=== PATIENT | female | born 1965 | race African-American/Black ===

== ENCOUNTER 2022-05-10 09:44 | Observation (INO) | payer OTHER ==
[2022-05-10 10:22] LABS: #Basophils 0.1 thou/uL (0.0-0.2); #Eosinphils 0.1 thou/uL (0.0-0.7); #Lymphocytes 1.8 thou/uL (1.20-3.40); #Monocytes 0.6 thou/uL (0.11-0.59); %Monocytes 7.4 % (0.0-10.0); %Neutrophils 69.6 % (42.0-75.0); Hemoglobin 13.5 g/dL (12.0-16.0); Mean Corpuscular HGB CONC 35.1 g/dL (32.0-36.0); Mean Corpuscular Hemoglobin 35.1 pg (27.0-31.0); Mean Corpuscular Volume 99.8 fl (78.0-98.0); Mean Platelet Volume 8.1 fL (7.4-10.4); Platelet Count 210 10x3/uL (130-400); RBC Distribution Width 11.7 % (11.5-14.5); Red Blood Cell (RBC) Count 3.85 mill/uL (4.20-5.40); White Blood Cell (WBC) Count 8.6 10x3/uL (4.8-10.8)
[2022-05-10] MEDS ORDERED: Aspirin Chewable 81 MG TAB ONE (10:25)
[2022-05-10 10:46] LABS: ALT (SGPT) 32 U/L (8-55); AST (SGOT) 23 U/L (5-34); Albumin 4.4 g/dL (3.5-5.0); Alkaline Phosphatase 72 U/L (40-110); Anion Gap 15 mmol/L (10-20); BUN (Urea Nitrogen) 9 mg/dL (9.8-20.1); Bilirubin, Total 0.4 mg/dL (0.2-1.2); CK (CPK) 57 U/L (29-168); Calc. Creatinine Clearance 0 mL/min (70-130); Calcium 9.8 mg/dL (7.8-10.44); Carbon Dioxide 24 mmol/L (22-29); Chloride 100 mmol/L (98-107); Estimated GFR 79; Globulin 2.5 g/dL (2.4-3.5); Glucose 307 mg/dL (70-105); Lipase 11 U/L (8-78); Potassium 3.8 mmol/L (3.5-5.1); Protein, Total 6.9 g/dL (6.0-8.3); Sodium 135 mmol/L (136-145)
[2022-05-10] MEDS ORDERED: Acetaminophen 325 MG TAB PO PRN (13:07)
[2022-05-10] MEDS ORDERED: Lorazepam 1 MG TAB PO PRN (13:07)
[2022-05-10] MEDS ORDERED: Lorazepam 2 MG/ML VIAL IM PRN (13:07)
[2022-05-10] MEDS ORDERED: Metoclopramide HCl 10 MG/2 ML VIAL IVP PRN (13:12)
[2022-05-10] MEDS ORDERED: Electrolyte Replacement Protocol 1 EACH FS SCH (13:15)
[2022-05-10] MEDS ORDERED: HumaLOG 300 UNITS/3 ML VIAL SC PRN (13:18)
[2022-05-10] MEDS ORDERED: Dextrose 50% Abboject 50 ML SYRINGE SLOW IVP PRN (13:18)
[2022-05-10] MEDS ORDERED: Dextrose 5% in Water 1,000 ML IV PRN (13:18)
[2022-05-10] MEDS ORDERED: NIFEdipine XL 30 MG TAB PO SCH (13:45)
[2022-05-10] MEDS ORDERED: Multivit, Therapeutic 1 TAB PO SCH (13:45)
[2022-05-10] MEDS ORDERED: Folic Acid 1 MG TAB PO SCH (13:45)
[2022-05-10] MEDS ORDERED: Oxymetazoline HCl 0.05% (30 ML BOT) NS PRN (13:50)
[2022-05-10] MEDS ORDERED: Nicotine 14 MG PATCH ONE (14:15)
[2022-05-10] MEDS ORDERED: Folic Acid 1 MG TAB ONE (14:15)
[2022-05-10] MEDS ORDERED: NIFEdipine XL 30 MG TAB ONE (14:16)
[2022-05-10] MEDS: Nicotine 14 MG PATCH TD SCH (14:20)
[2022-05-10] MEDS ORDERED: cloNIDine 0.1 MG TAB PO SCH (16:06)
[2022-05-10] MEDS ORDERED: LORazepam 2 MG/ML SYR.(CARPUJECT) ONE (16:25)
[2022-05-10] MEDS ORDERED: Amlodipine 5 MG TAB ONE (16:26)
[2022-05-10] MEDS ORDERED: cloNIDine 0.1 MG TAB ONE (16:26)
[2022-05-10] MEDS ORDERED: Lorazepam 2 MG/ML VIAL SLOW IVP SCH (17:00)
[2022-05-10] MEDS ORDERED: Amlodipine 5 MG TAB PO SCH (17:00)
[2022-05-10 17:05] LABS: Hemoglobin A1c 7.9 % (4.0-6.0)
[2022-05-10 17:18] LABS: Alcohol Less than 10 mg/dL (Less than 10); Magnesium 2.1 mg/dL (1.6-2.6); Phosphorus 3.6 mg/dL (2.3-4.7)
[2022-05-10 17:23] LABS: Troponin I Less than 0.010 ng/mL (< 0.028)
[2022-05-10 18:28] LABS: Amphetamine Not Detected (NotDetected); Barbiturates Screen Not Detected (NotDetected); Benzodiazepine Screen Not Detected (NotDetected); Cocaine Metabolite Screen Not Detected (NotDetected); Methadone Not Detected (NotDetected); Methamphetamine Not Detected (NotDetected); Opiate Screen Not Detected (NotDetected); Oxycodone Screen Not Detected (NotDetected); Phencyclidine (PCP) Not Detected (NotDetected); THC/Cannabinoid Screen Not Detected (NotDetected); Tricyclic Screen Not Detected (NotDetected)
[2022-05-10 18:59] LABS: SARS-CoV-2 NAA Rapid Test Not Detected (NotDetected)
[2022-05-10] MEDS: Nitroglycerin 2% Ointment 1 INCH/1 GM Packet TOP SCH ×2 (19:11→21:11)
[2022-05-10 19:27] VITALS: BMI 26.1
[2022-05-10] MEDS: cloNIDine 0.1 MG TAB PO SCH (21:10)
[2022-05-11] MEDS: Nitroglycerin 2% Ointment 1 INCH/1 GM Packet TOP SCH ×3 (06:07→20:12)
[2022-05-11 08:26] LABS: #Basophils 0.1 thou/uL (0.0-0.2); #Eosinphils 0.1 thou/uL (0.0-0.7); #Lymphocytes 2.1 thou/uL (1.20-3.40); #Monocytes 0.8 thou/uL (0.11-0.59); #Neutrophils 6.2 thou/uL (1.40-6.50); %Eosinophils 1.3 % (0.0-10.0); %Lymphocytes 22.2 % (21.0-51.0); %Monocytes 8.5 % (0.0-10.0); Hemoglobin 13.9 g/dL (12.0-16.0); Mean Corpuscular HGB CONC 34.6 g/dL (32.0-36.0); Mean Corpuscular Hemoglobin 34.7 pg (27.0-31.0); Mean Platelet Volume 8.2 fL (7.4-10.4); Platelet Count 228 10x3/uL (130-400); RBC Distribution Width 11.9 % (11.5-14.5); Red Blood Cell (RBC) Count 4.02 mill/uL (4.20-5.40); White Blood Cell (WBC) Count 9.3 10x3/uL (4.8-10.8)
[2022-05-11 08:45] LABS: Anion Gap 13 mmol/L (10-20); BUN (Urea Nitrogen) 6 mg/dL (9.8-20.1); Calc. Creatinine Clearance 100 mL/min (70-130); Carbon Dioxide 26 mmol/L (22-29); Chloride 104 mmol/L (98-107); Estimated GFR 92; Glucose 201 mg/dL (70-105); Potassium 3.8 mmol/L (3.5-5.1); Sodium 139 mmol/L (136-145)
[2022-05-11] MEDS ORDERED: NIFEdipine XL 30 MG TAB PO SCH (09:00)
[2022-05-11] MEDS ORDERED: Amlodipine 5 MG TAB PO SCH ×2 (09:00→14:30)
[2022-05-11] MEDS: Folic Acid 1 MG TAB PO SCH (09:26)
[2022-05-11] MEDS: Thiamine 100 MG TAB PO SCH (09:27)
[2022-05-11] MEDS: Multivit, Therapeutic 1 TAB PO SCH (09:27)
[2022-05-11] MEDS: cloNIDine 0.1 MG TAB PO SCH ×2 (09:27→20:12)
[2022-05-11] MEDS: Loratadine 10 MG TAB PO SCH (09:27)
[2022-05-11] MEDS ORDERED: Lorazepam 1 MG TAB PO PRN (13:07)
[2022-05-11] MEDS: HumaLOG 300 UNITS/3 ML VIAL SC PRN (14:33)
[2022-05-11] MEDS: Nicotine 14 MG PATCH TD SCH (14:33)
[2022-05-11] MEDS ORDERED: metFORMIN 500 MG TAB PO SCH (17:15)
[2022-05-12] MEDS: Nitroglycerin 2% Ointment 1 INCH/1 GM Packet TOP SCH ×2 (06:29→15:02)
[2022-05-12] MEDS: HumaLOG 300 UNITS/3 ML VIAL SC PRN (06:30)
[2022-05-12] MEDS ORDERED: metFORMIN 500 MG TAB PO SCH (08:00)
[2022-05-12 08:37] VITALS: TEMP 98.4
[2022-05-12] MEDS ORDERED: Amlodipine 10 MG TAB PO SCH (09:00)
[2022-05-12] MEDS: Thiamine 100 MG TAB PO SCH (09:37)
[2022-05-12] MEDS: cloNIDine 0.1 MG TAB PO SCH (09:37)
[2022-05-12] MEDS: Loratadine 10 MG TAB PO SCH (09:37)
[2022-05-12] MEDS: Multivit, Therapeutic 1 TAB PO SCH (09:38)
[2022-05-12] MEDS: Folic Acid 1 MG TAB PO SCH (09:38)
[2022-05-12 12:59] VITALS: BP 158/85
[2022-05-12] MEDS ORDERED: Lorazepam 1 MG TAB PO PRN (13:07)
[2022-05-12] MEDS: Nicotine 14 MG PATCH TD SCH (14:55)
[2022-05-13] MEDS ORDERED: Lorazepam 0.5 MG TAB PO PRN (13:07)
== END 2022-05-12 15:00 | disposition home or self-care (01) ==
LOC: ERS 09:44 → ERHOLD 12:03 → IMCU/EMU 18:38 → OBSVTOIN 19:23 → INTOOBSV 19:23 → 2SW 05-11 18:29
PROVIDERS: ADMIT Internal Medicine; ATTEND Internal Medicine
DX: I16.1 Hypertensive emergency (principal); E11.9 Type 2 diabetes mellitus without complications; F17.210 Nicotine dependence, cigarettes, uncomplicated; F10.10 Alcohol abuse, uncomplicated; E87.1 Hypo-osmolality and hyponatremia; J30.2 Other seasonal allergic rhinitis; I08.3 Combined rheumatic disorders of mitral, aortic and tricuspid valves; Z79.899 Other long term (current) drug therapy; Z20.822 Contact with and (suspected) exposure to COVID-19; Y90.0 Blood alcohol level of less than 20 mg/100 ml
CPT/HCPCS: 36415; 36416; 71045; 80048; 80053; 80306; 80307; 82550; 83036; 83690; 83735; 83880; 84100; 84443; 84484; 85025; 85379; 93005; 93306; 96374; 96376; G0378; J1815; J2060; U0002